=== PATIENT | male | born 1960 | race Caucasian/White ===

== ENCOUNTER → 2017-08-10 | Outpatient (CLI) | payer OTHER ==
--- NOTE | 2017-08-10 12:13 | NUR ---
PATIENT BROUGHT FROM CT SCAN AFTER HAVING ALLERGIC REACTION TO CONTRAST DYE. UPON ARRIVAL TO CT, PATIENT HAD SEVERAL WHELPS ALL OVER FACE AND RED SPLOTCHES. HE WAS ITCHING BUT NO DIFFICULTY BREATHING AT PRESENT TIME OR EVEN AFTER HE STARTED BREAKING OUT. SOLUMEDROL AND BENADRYL ADMINISTRATED WITH DR. CARUSO PRESENT FOR ALL MEDICATIONS. PATIENT ALERT AND ORIENTED AND HAS IMMIGRATION SERVICES OFFICER HERE TO DRIVE HIM HOME
== END ==
LOC: M.CT 09:34
DX: R19.09 Other intra-abdominal and pelvic swelling, mass and lump (principal)